=== PATIENT | male | born 1970 | race Caucasian/White ===

== ENCOUNTER 2017-06-21 10:54 | Emergency (ER) | payer SELFPAY ==
[~2017-06-21] VITALS: Ht 175.3 cm; Wt 83.9 kg
[~2017-06-21 10:54] MED LIST: Amlodipine PO; CEPH500C PO; DOXY100C2 PO; HYDR-2890 PO; HYDR-3583 PO; HYDR-3876 PO; LISI40TA PO; LORA1TAB PO; Lisinopril PO; TRAM100T28 PO
--- OUTSIDE RECORDS SUMMARY | 2017-06-21 11:00 | XMS REPORT | Clinical Summary ---
Author Author [facility] Organization [facility] Address Unknown Phone Unavailable Care Team Providers Care Expanded Duty Dental Assistant Name Role Phone PCP Unavailable Source Comments Some departments are not documenting in the electronic medical record. If you do not see the information that you expected, contact Release of Information in the Health Information Management department at [phone] for further assistance in locating additional records.[facility] Allergies No Known Allergies Current Medications Prescription Sig. Disp. Refills Start End Date Status Date warfarin (COUMADIN) 7.5 Take 1 Tab by mouth At 30 0 1024/20 Active mg tablet Bedtime Daily. 08 oxycodone/acetaminophen Take 1 Tab by mouth Every 40 0 1024/20 Active (PERCOCET) 5/325 mg 3 Hours as needed for 08 tablet Pain. oxycodone SR (OXYCONTIN) Take 1 Tab by mouth Twice 30 0 1024/20 Active 10 mg tablet Daily. [address] Take 1 Cap by mouth Twice 60 0 24/20 Active (PREVACID) 30 mg capsule Daily. 08 senna/docusate Take 3 Tabs by mouth 30 2 1024/20 Active (SENOKOT-S) 8.6/50 mg Twice Daily. 08 tablet lisinopril (PRINIVIL; Take 1.5 Tabs by mouth 30 0 10/24/20 Active ZESTRIL) 10 mg tablet Daily. 08 metoprolol (LOPRESSOR) Take 2 Tabs by mouth 60 0 10/24/20 Active 100 mg tablet Twice Daily. 08 amlodipine (NORVASC) 5 mg Take 1 Tab by mouth 30 0 1024/20 Active tablet Daily. 08 zolpidem (AMBIEN) 5 mg Take 2 Tabs by mouth At 5 0 10/24/20 Active tablet Bedtime Daily. 08 insulin glargine (LANTUS) Inject 30 Units into 10 doses 0 08/03/20 Active 100 unit/mL injection area(s) as directed At 08 Bedtime Daily. insulin regular (NOVOLIN Inject 4-12 Units into 100 units 0 08/03/20 Active R) 300 unit/3 mL InPn area(s) as directed Take 08 as Directed. trazodone (DESYREL) 50 mg Take 1 Tab by mouth At 5 0 08/03/20 Active tablet Bedtime Daily. 08 Active Problems Problem Noted Date Hemorrhagic pancreatitis 08/03/2008 Family History Medical History Relation Name Comments Cancer Father Hypertension Mother Relation Name Status Comments Father Mother Social History Tobacco Use Types Packs/Day Years Used Date Former Smoker Cigarettes Quit: 06/25/2008 Comments: occ Alcohol Use Drinks/Week oz/Week Comments Yes socail Sex Assigned at Date Recorded Not on file Last Filed Vital Signs Vital Sign Reading Time Taken Blood Pressure 135/89 08/03/2008 3:00 PM CDT Pulse 110 08/03/2008 3:00 PM CDT Temperature 37.3 C (99.1 F) 08/03/2008 3:00 PM CDT Respiratory Rate - - Oxygen Saturation 99% 08/03/2008 3:00 PM CDT Inhaled Oxygen - - Concentration Weight 95.4 kg (210 lb 6.4 oz) 08/03/2008 6:00 AM CDT Height 172.7 cm (5' 8") 07/23/2008 10:00 AM CDT Body Mass Index 31.99 08/03/2008 6:00 AM CDT Plan of Treatment Health Maintenance Due Date Last Done Comments PHYSICAL (COMPREHENSIVE) 1978 EXAM PERTUSSIS VACCINE 1982 TETANUS VACCINE 1988 INFLUENZA VACCINE 06/11/2017 Results Not on filefrom Last 3 Months
--- NOTE | 2017-06-21 11:10 | ED Psychosocial ---
General Chief Complaint: Trauma-Non Activation Stated Complaint: TRIPPED-HIT HEAD Source: patient Exam Limitations: no limitations History of Present Illness Time seen by provider: 11:06 Initial Comments To ER with reports of head injury. Patient was at the police station today when he tripped and fell striking the front of his head. No loss of consciousness. Reportedly the patient lost his job at [employer] here in [place] last week. Since then he's been having some bizarre behavior. He states "they have been taking over my TV computer and cell phone because my playlist has changed". He is unable to clarify who "they" are. Last night police were called to [employer] parking lot where this gentleman was sitting in the parking lot watching staff. Today, police were called to the patient's house to check on the patient as he had made some homicidal comments toward former staff and suicidal comments as well that were relayed to the Police Department. Upon the police department arrival, the patient was cooperative. Prior to leaving he went to his room and picked up her shoes and his shotgun. He did not point shotgun at the police officers but they are concerned this may have been an attempt to get them to shoot him. The patient himself denies any history of mental health issues. He is lethargic upon arrival and has reportedly taken 2-3 lorazepam this morning. He states that he would be agreeable to going inpatient for psychiatric help. Timing/Duration: constant, getting worse Associated Symptoms: insomnia Allergies and Home Medications Allergies Coded Allergies: No Known Drug Allergies (Unverified , 10/22/11) Home Medications Cephalexin Monohydrate 500 Mg Capsule, 1 EACH PO BID, #14 Prescribed by: JASON JAVIER on 03/20/15 1235 Hydrocodone Bit/Acetaminophen 1 Each Tablet, 1 EACH PO Q4H PRN, (Reported) PRN PAIN Hydrocodone/Acetaminophen 1 Each Tablet, 1-2 TAB PO Q4H PRN for PAIN, #30 Prescribed by: JASON JAVIER on 03/20/15 1235 Lisinopril 40 Mg Tablet, 40 MG PO DAILY, (Reported) Lorazepam 1 Mg Tablet, 1 MG PO QID PRN, (Reported) PRN ANXIETY Constitutional: see HPI EENTM: see HPI Respiratory: no symptoms reported Cardiovascular: no symptoms reported Genitourinary: no symptoms reported Musculoskeletal: no symptoms reported Skin: no symptoms reported Psychiatric/Neurological: See HPI, Depressed, Emotional Problems Past Lxpkmex-Aivyay-Eosumv Hx Reproductive System Hx Reproductive Disorders: No Gastrointestinal Gastrointestinal Disorders: Pancreatitis Psychosocial Behavioral Health Disorders: Anxiety Physical Exam Vital Signs Vital Sign - Last 12Hours 06/21/17 11:00 Temp 97.9 Pulse 86 Resp 12 B/P (MAP) 143/119 Pulse Ox 97 O2 Delivery Room Air Capillary Refill : General Appearance: WD/WN, no apparent distress, other (lethargic but arousable to painful stimuli and answers questions appropriately) HEENT: normal ENT inspection Neck: non-tender, full range of motion Respiratory: normal breath sounds, no respiratory distress, no accessory muscle use Gastrointestinal: normal bowel sounds, non tender, soft Neurologic/Psychiatric: alert, oriented x 3 Appearance/Memory: disheveled, impaired insight Behavior/Eye Contact: cooperative, good eye contact, normal speech Thoughts/Hallucinations: delusions Skin: normal color, warm/dry Progress/Results/Core Measures Results/Orders Lab Results Laboratory Tests Test 06/21/17 11:20 06/21/17 13:49 Range/Units White Blood Count 7.9 4.3-11.0 10^3/uL Red Blood Count 4.91 4.35-5.85 10^6/uL Hemoglobin 16.2 13.3-17.7 G/DL Hematocrit 46 40-54 % Mean Corpuscular Volume 94 80-99 FL Mean Corpuscular Hemoglobin 33 25-34 PG Mean Corpuscular Hemoglobin Concent 35 32-36 G/DL Red Cell Distribution Width 11.9 10.0-14.5 % Platelet Count 92 L 130-400 10^3/uL Mean Platelet Volume 11.1 H 7.4-10.4 FL Neutrophils (%) (Auto) 70 42-75 % Lymphocytes (%) (Auto) 18 12-44 % Monocytes (%) (Auto) 11 0-12 % Eosinophils (%) (Auto) 1 0-10 % Basophils (%) (Auto) 0 0-10 % Neutrophils # (Auto) 5.5 1.8-7.8 X 10^3 Lymphocytes # (Auto) 1.4 1.0-4.0 X 10^3 Monocytes # (Auto) 0.9 0.0-1.0 X 10^3 Eosinophils # (Auto) 0.1 0.0-0.3 10^3/uL Basophils # (Auto) 0.0 0.0-0.1 10^3/uL Sodium Level 139 135-145 MMOL/L Potassium Level 3.6 3.6-5.0 MMOL/L Chloride Level 108 H 98-107 MMOL/L Carbon Dioxide Level 23 21-32 MMOL/L Anion Gap 8 5-14 MMOL/L Blood Urea Nitrogen 8 7-18 MG/DL Creatinine 0.77 0.60-1.30 MG/DL Estimat Glomerular Filtration Rate > 60 BUN/Creatinine Ratio 10 Glucose Level 121 H 70-105 MG/DL Calcium Level 9.0 8.5-10.1 MG/DL Total Bilirubin 0.7 0.1-1.0 MG/DL Aspartate Amino Transf (AST/SGOT) 78 H 5-34 U/L Alanine Aminotransferase (ALT/SGPT) 102 H 0-55 U/L Alkaline Phosphatase 136 40-136 U/L Total Protein 6.8 6.4-8.2 GM/DL Albumin 3.9 3.2-4.5 GM/DL Thyroid Stimulating Hormone (TSH) 1.54 0.35-4.94 UIU/ML Salicylates Level < 5.0 L 5.0-20.0 MG/DL Acetaminophen Level < 10 L 10-30 UG/ML Serum Alcohol 53 H <10 MG/DL Urine Color YELLOW Urine Clarity CLEAR Urine pH 5 5-9 Urine Specific [place] 1.015 L 1.016-1.022 Urine Protein NEGATIVE NEGATIVE Urine Glucose (UA) NEGATIVE NEGATIVE Urine Ketones NEGATIVE NEGATIVE Urine Nitrite NEGATIVE NEGATIVE Urine Bilirubin NEGATIVE NEGATIVE Urine Urobilinogen NORMAL NORMAL MG/DL Urine Leukocyte Esterase 1+ H NEGATIVE Urine RBC (Auto) 1+ H NEGATIVE Urine RBC RARE /HPF Urine WBC 5-10 H /HPF Urine Squamous Epithelial Cells 5-10 /HPF Urine Renal Epithelial Cells NONE /HPF Urine Crystals NONE /LPF Urine Bacteria NEGATIVE /HPF Urine Casts NONE /LPF Urine Mucus SMALL H /LPF Urine Culture Indicated YES Urine Opiates Screen NEGATIVE NEGATIVE Urine Oxycodone Screen NEGATIVE NEGATIVE Urine Methadone Screen NEGATIVE NEGATIVE Urine Propoxyphene Screen NEGATIVE NEGATIVE Urine Barbiturates Screen NEGATIVE NEGATIVE Ur Tricyclic Antidepressants Screen NEGATIVE NEGATIVE Urine Phencyclidine Screen NEGATIVE NEGATIVE Urine Amphetamines Screen NEGATIVE NEGATIVE Urine Methamphetamines Screen POSITIVE H NEGATIVE Urine Benzodiazepines Screen POSITIVE H NEGATIVE Urine Cocaine Screen NEGATIVE NEGATIVE Urine Cannabinoids Screen POSITIVE H NEGATIVE My Orders Orders - ISAAC STEPHENSON APRN Cbc With Automated Diff (06/21/17 11:04) Ct Head Wo (06/21/17 11:04) Comprehensive Metabolic Panel (06/21/17 11:04) Thyroid Stimulating Hormone (06/21/17 11:04) Ekg Tracing (06/21/17 11:04) Ua Culture If Indicated (06/21/17 11:04) Drug Screen Stat (Urine) (06/21/17 11:04) Alcohol (06/21/17 11:04) Salicylate (06/21/17 11:04) Acetaminophen (06/21/17 11:04) General/Regular (06/21/17 Lunch) Urine Culture (06/21/17 13:49) Vital Signs/I&O Vital Sign - Last 12Hours 06/21/17 11:00 Temp 97.9 Pulse 86 Resp 12 B/P (MAP) 143/119 Pulse Ox 97 O2 Delivery Room Air Departure Communication (Admissions) Progress Notes 1320-[facility] in [place] does not have any psychiatric beds. [facility] in [place], no answer. [facility] in [facility] no answer. 1355-still no answer at [facility] in [place] or [facility], no answer 1422- [facility] in [facility] does have bed availability and patient's labs have been sent to them for review 1607- patient is now pacing the hallways agitated. States he is not going to go anywhere voluntarily. I've spoken with Bakari nunez from [facility] and [place] [employer] will be in route. 1646-patient states that he does not want to go anywhere voluntarily but he states if the alternative is to go to [place] involuntarily then he would agree to go inpatient somewhere more local. 1717-patient just left the emergency room stating that he is leaving regardless of the consequences. I did advise him that we would consider him to be a threat to himself and others and because of this I would have to call the police department. He says "okay, I've just been waiting too long." I did notify [place] [employer] at this time in addition to [facility]. Impression Impression: Primary Impression: Mild closed head injury Additional Impressions: Hematoma of scalp Acute psychosis Disposition: 21 DIS/X[address]/LAW ENFORCE Condition: Stable Admissions Decision to Admit/Date: Jun 21, 2017 Time/Decision to Admit Time: 16:57 Departure-Patient Inst. Referrals: CHARAN DURAND MD (PCP/Family) Primary Care Physician ISAAC STEPHENSON APRN Jun 21, 2017 11:10
[2017-06-21 11:31] LABS: BASOPHILS % (AUTO) 0 % (0-10); EOSINOPHILS # (AUTO) 0.1 10^3/uL (0.0-0.3); EOSINOPHILS % (AUTO) 1 % (0-10); LYMPHOCYTES # (AUTO) 1.4 X 10^3 (1.0-4.0); LYMPHOCYTES % (AUTO) 18 % (12-44); MEAN CORPUSCULAR HEMOGLOBIN 33 PG (25-34); MEAN CORPUSCULAR HGB CONC 35 G/DL (32-36); MEAN CORPUSCULAR VOLUME 94 FL (80-99); MEAN PLATELET VOLUME 11.1 FL (7.4-10.4); MONOCYTES # (AUTO) 0.9 X 10^3 (0.0-1.0); MONOCYTES % (AUTO) 11 % (0-12); NEUTROPHILS # (AUTO) 5.5 X 10^3 (1.8-7.8); NEUTROPHILS % (AUTO) 70 % (42-75); PLATELET COUNT 92 10^3/uL (130-400); RED BLOOD COUNT 4.91 10^6/uL (4.35-5.85); RED CELL DISTRIBUTION WIDTH 11.9 % (10.0-14.5); WHITE BLOOD COUNT 7.9 10^3/uL (4.3-11.0)
[2017-06-21 11:56] LABS: ALANINE AMINOTRANSFERASE 102 U/L (0-55); ALBUMIN 3.9 GM/DL (3.2-4.5); ALCOHOL 53 MG/DL (<10); ANION GAP 8 MMOL/L (5-14); ASPARTATE AMINO TRANSFERASE 78 U/L (5-34); BILIRUBIN,TOTAL 0.7 MG/DL (0.1-1.0); BLOOD UREA NITROGEN 8 MG/DL (7-18); BUN/CREATININE RATIO 10; CARBON DIOXIDE 23 MMOL/L (21-32); CHLORIDE 108 MMOL/L (98-107); CREATININE SERUM 0.77 MG/DL (0.60-1.30); GFR ESTIMATED > 60; GLUCOSE 121 MG/DL (70-105); POTASSIUM 3.6 MMOL/L (3.6-5.0); SALICYLATE < 5.0 MG/DL (5.0-20.0); SODIUM 139 MMOL/L (135-145); TOTAL PROTEIN 6.8 GM/DL (6.4-8.2)
[2017-06-21 12:00] LABS: ACETAMINOPHEN < 10 UG/ML (10-30)
[2017-06-21 12:18] LABS: THYROID STIMULATING HORMONE 1.54 UIU/ML (0.35-4.94)
--- NOTE | 2017-06-21 12:20 | Diagnostic Imaging Report ---
PROCEDURE: CT head without contrast. TECHNIQUE: Multiple contiguous axial images were obtained through the brain without the use of intravenous contrast. INDICATION: Fall. Head injury. COMPARISON: 10/22/2011. FINDINGS: No acute intracranial hemorrhage, mass effect or edema is demonstrated. Redman-white junction is preserved. Ventricles appear normal. There is a large scalp hematoma in the frontal region over the convexity. No acute fracture suspected. The paranasal sinuses and mastoids are clear as visualized. IMPRESSION: No evidence of an acute intracranial abnormality. Dictated by: Dictated on workstation # [id number]
[2017-06-21 13:55] LABS: BILIRUBIN,URINE NEGATIVE (NEGATIVE); KETONES,URINE NEGATIVE (NEGATIVE); LEUKOCYTE ESTERASE ,URINE 1+ (NEGATIVE); NITRITE,URINE NEGATIVE (NEGATIVE); PH,URINE 5 (5-9); PROTEIN,URINE NEGATIVE (NEGATIVE); UROBILINOGEN,URINE NORMAL (NORMAL)
[2017-06-21 17:10] VITALS: BP 143/119
== END 2017-06-21 17:10 | disposition left against medical advice (07) ==
LOC: EDUNIT# 10:54 → ER 10:55
DX: S09.90XA Unspecified injury of head, initial encounter (principal); S00.03XA Contusion of scalp, initial encounter; F23 Brief psychotic disorder; F41.9 Anxiety disorder, unspecified; Z87.19 Personal history of other diseases of the digestive system; W01.198A Fall on same level from slipping, tripping and stumbling with subsequent striking against other object, initial encounter
CPT/HCPCS: 36415; 70450; 80053; 80306; 80320; 80329; 81000; 84443; 85025; 87088; 93005

== ENCOUNTER 2017-07-02 20:30 | Emergency (ER) | payer SELFPAY ==
--- OUTSIDE RECORDS SUMMARY | 2017-07-02 20:35 | XMS REPORT | Clinical Summary ---
Author Author [facility] Organization [facility] Address Unknown Phone Unavailable Care Team Providers Care Platform Architect Name Role Phone PCP Unavailable Source Comments Some departments are not documenting in the electronic medical record. If you do not see the information that you expected, contact Release of Information in the Health Information Management department at [phone] for further assistance in locating additional records.[facility] Allergies No Known Allergies Current Medications Prescription Sig. Disp. Refills Start End Date Status Date warfarin (COUMADIN) 7.5 Take 1 Tab by mouth At 30 0 10/24/20 Active mg tablet Bedtime Daily. 08 oxycodone/acetaminophen Take 1 Tab by mouth Every 40 0 1024/20 Active (PERCOCET) 5/325 mg 3 Hours as needed for 08 tablet Pain. oxycodone SR (OXYCONTIN) Take 1 Tab by mouth Twice 30 0 10/24/20 Active 10 mg tablet Daily. 08 lansoprazole [...] VACCINE 1982 TETANUS VACCINE 1988 INFLUENZA VACCINE 07/11/2017 Results Not on filefrom Last 3 Months
== END 2017-07-02 21:21 | disposition left against medical advice (07) ==
LOC: EDUNIT# 20:30 → ER 20:32
DX: F32.9 Major depressive disorder, single episode, unspecified (principal)